=== PATIENT | female | born 1995 | race Caucasian/White ===

== ENCOUNTER 2019-12-17 14:05 | Emergency (ER) | payer MEDICAID ==
[~2019-12-17] VITALS: Ht 167.6 cm; Wt 78.0 kg
[~2019-12-17 14:05] MED LIST: ONDA4TAB6 PO
[2019-12-17 14:15] VITALS: BP 122/73
[2019-12-17] MEDS ORDERED: DOXY100C77 PO (15:08)
[2019-12-17] MEDS ORDERED: DOXYCYCLINE 100MG CAPSULE PO STA (15:32)
[2019-12-17 15:38] LABS: BASOPHILS % (AUTO) 0.3 % (0-1); EOSINOPHILS # (AUTO) 0.1 X10'3 (0-0.9); EOSINOPHILS % (AUTO) 0.6 % (0-6); HEMATOCRIT 42.2 % (35.0-45.0); LYMPHOCYTES # (AUTO) 1.3 X10'3 (1.1-4.8); LYMPHOCYTES % (AUTO) 10.9 % (21-51); MEAN CORPUSCULAR HEMOGLOBIN 28.4 PG (27.0-31.0); MEAN CORPUSCULAR HGB CONC 33.2 g/dL (33.0-36.5); MEAN CORPUSCULAR VOLUME 85.4 FL (78-98); MEAN PLATELET VOLUME 8.9 FL (7.4-10.4); MONOCYTES # (AUTO) 0.6 X10'3 (0-0.9); MONOCYTES % (AUTO) 5.1 % (2-12); NEUTROPHILS # (AUTO) 10.3 X10'3 (1.8-7.7); NEUTROPHILS % (AUTO) 83.1 % (42-75); PLATELET COUNT 231 X10'3 (140-440); RED BLOOD COUNT 4.94 X10'6 (4.20-5.60); RED CELL DISTRIBUTION WIDTH 13.4 % (11.5-14.5); WHITE BLOOD COUNT 12.4 X10'3 (4.5-11.0)
== END 2019-12-17 16:05 | disposition home or self-care (01) ==
LOC: ER 14:06
DX: L03.113 Cellulitis of right upper limb (principal); Z79.899 Other long term (current) drug therapy
CPT/HCPCS: 36415; 85025; 99283

== ENCOUNTER 2020-03-26 13:58 | Emergency (ER) | payer MEDICAID ==
[~2020-03-26] VITALS: Ht 167.6 cm; Wt 90.0 kg
[2020-03-26 14:02] VITALS: BP 121/63
[2020-03-26] MEDS ORDERED: BENZ-16 PO (15:17)
[2020-03-26] MEDS ORDERED: ROBCFL PO (15:17)
[2020-03-26] MEDS ORDERED: ALBU8HFA PO (15:17)
== END 2020-03-26 15:44 | disposition home or self-care (01) ==
LOC: ER 13:58
DX: R05 Cough (principal); R09.81 Nasal congestion; J02.9 Acute pharyngitis, unspecified; F17.200 Nicotine dependence, unspecified, uncomplicated; Z20.828 Contact with and (suspected) exposure to other viral communicable diseases; Z79.899 Other long term (current) drug therapy
CPT/HCPCS: 36415; 87635; 99283

== ENCOUNTER 2021-11-23 18:42 | Emergency (ER) | payer MEDICAID ==
[~2021-11-23] VITALS: Ht 167.6 cm; Wt 109.1 kg
[2021-11-23 18:47] VITALS: BP 136/89
[2021-11-23] MEDS ORDERED: ketorolac trometh inj. 60 MG/2 ML VIAL IM ONE (20:05)
== END 2021-11-23 20:34 | disposition home or self-care (01) ==
LOC: ER 18:43
DX: S93.492A Sprain of other ligament of left ankle, initial encounter (principal); W18.39XA Other fall on same level, initial encounter; Y93.89 Activity, other specified; Y92.89 Other specified places as the place of occurrence of the external cause; Y99.8 Other external cause status
CPT/HCPCS: 73610; 73630; 96372; 99284; J1885

== ENCOUNTER 2022-02-14 09:46 | Emergency (ER) | payer MEDICAID ==
[~2022-02-14] VITALS: Ht 167.6 cm; Wt 90.9 kg
[2022-02-14] MEDS ORDERED: diphenhydrAMINE 25mg capsule PO ONE (12:15)
[2022-02-14] MEDS ORDERED: predniSONE 20 mg tablet PO ONE (12:15)
[2022-02-14] MEDS ORDERED: famotidine 20mg tablet PO ONE (12:15)
[2022-02-14 13:34] LABS: BASOPHILS % (AUTO) 0.5 % (0-1); EOSINOPHILS % (AUTO) 0.4 % (0-6); HEMATOCRIT 46.3 % (35.0-45.0); HEMOGLOBIN 15.7 g/dl (12.0-16.0); LYMPHOCYTES # (AUTO) 1.2 X10'3 (1.1-4.8); MEAN CORPUSCULAR HEMOGLOBIN 28.2 PG (27.0-31.0); MEAN CORPUSCULAR HGB CONC 33.8 g/dL (33.0-36.5); MEAN CORPUSCULAR VOLUME 83.6 FL (78-98); MEAN PLATELET VOLUME 8.9 FL (7.4-10.4); MONOCYTES # (AUTO) 0.4 X10'3 (0-0.9); MONOCYTES % (AUTO) 6.9 % (2-12); NEUTROPHILS # (AUTO) 4.1 X10'3 (1.8-7.7); NEUTROPHILS % (AUTO) 71.2 % (42-75); PLATELET COUNT 224 X10'3 (140-440); RED BLOOD COUNT 5.54 X10'6 (4.20-5.60); RED CELL DISTRIBUTION WIDTH 13.9 % (11.5-14.5); WHITE BLOOD COUNT 5.8 X10'3 (4.5-11.0)
[2022-02-14 13:50] LABS: ALANINE AMINOTRANSFERASE 25 U/L (12-78); ALBUMIN 3.7 G/DL (3.4-5.0); ALBUMIN/GLOBULIN RATIO 0.8 (1.1-1.5); ALKALINE PHOSPHATASE 72 IU/L (46-116); ANION GAP 8 (8-16); ASPARTATE AMINO TRANSFERASE 26 U/L (10-37); BILIRUBIN,TOTAL 0.3 MG/DL (0.1-1.0); BLOOD UREA NITROGEN 13 MG/DL (7-18); BUN/CREATININE RATIO 12.7 (6.6-38.0); CALCIUM 8.8 MG/DL (8.5-10.1); CHLORIDE 101 MMOL/L (99-107); CREATININE 1.02 MG/DL (0.40-0.90); GLUCOSE 98 MG/DL (70-104); SODIUM 136 MMOL/L (135-145); TOTAL CARBON DIOXIDE 26.6 MMOL/L (24-32); TOTAL PROTEIN 8.2 G/DL (6.4-8.2); eGFR 65 ML/MIN
[2022-02-14] MEDS ORDERED: PRED20TA PO (13:59)
[2022-02-14] MEDS ORDERED: EPIN0.3P3 IM (13:59)
[2022-02-14] MEDS ORDERED: FAMO40TA58 PO (13:59)
[2022-02-14 14:08] VITALS: BP 123/85
== END 2022-02-14 15:38 | disposition home or self-care (01) ==
LOC: ER 09:46
DX: T78.40XA Allergy, unspecified, initial encounter (principal); X58.XXXA Exposure to other specified factors, initial encounter
CPT/HCPCS: 36415; 71046; 80053; 85025; 99284; J7512; Q0163

== ENCOUNTER 2022-02-22 20:06 | Emergency (ER) | payer MEDICAID ==
[~2022-02-22] VITALS: Ht 167.6 cm; Wt 98.2 kg
[~2022-02-22 20:06] MED LIST changes: +EPIN0.3P3 IM; +FAMO40TA58 PO; +PRED20TA PO
[2022-02-22 20:18] VITALS: BP 164/103
--- NOTE | 2022-02-22 21:33 | NUR ---
received pt in bed 15.
[2022-02-22] MEDS ORDERED: amox tr/potassium clavulanate 875/125mg TAB PO ONE (21:55)
[2022-02-22] MEDS ORDERED: HYDROcodone/acetaminophen 5mg/325mg tablet PO ONE ×2 (21:55→22:30)
[2022-02-22] MEDS ORDERED: HYDR-3965 PO (22:29)
[2022-02-22] MEDS ORDERED: AMOX-117 PO (22:29)
== END 2022-02-22 22:35 | disposition home or self-care (01) ==
LOC: ER 20:06
DX: K04.7 Periapical abscess without sinus (principal); Z79.899 Other long term (current) drug therapy
CPT/HCPCS: 99283